=== PATIENT | male | born 1935 | race Caucasian/White ===

== ENCOUNTER 2025-02-10 21:15 | Inpatient (IN) | payer MEDICARE, BC ==
[~2025-02-10] VITALS: Ht 177.8 cm; Wt 86.2 kg
[~2025-02-10 21:15] MED LIST: ZOSYN IVPB 3.375 G in IV D5W 50ml IV ONE
[2025-02-10] MEDS ORDERED: PIPERACI/TAZO 3.375GM/D5W 50ML PB IV ONE (22:27)
[2025-02-10 22:31] LABS: CALCIUM, SERUM 8.8 mg/dL (8.5-10.1); CREATININE 1.0 mg/dL (0.6-1.3); SODIUM SERUM 138.0 mmol/L (136-145); UREA NITROGEN, BLOOD 17.0 mg/dL (7-18)
[2025-02-10 22:36] LABS: APPEARANCE,URINE SLIGHTLY CLOUDY (CLEAR); BLOOD, URINE 2+ Ery/uL (NEGATIVE); LEUKOCYTE ESTERASE ,URINE 2+ (NEGATIVE); NITRITE, URINE POSITIVE (NEGATIVE); UGLUCOSE NEGATIVE (NEGATIVE)
[2025-02-10 22:38] LABS: INR 1.09 (0.91-1.10); LACTIC ACID 1.2 mmol/L (0.4-2.0)
[2025-02-10] MEDS: PIPERACILLIN /TAZOBACTAM 3.375 G in IV D5W 50 ML IV ONE (22:39)
[2025-02-10] MEDS: IV NS 0.9% 1,000 ML BAG IV ONE (22:39)
[2025-02-10 22:44] LABS: ASPARTATE AMINOTRANSFERASE 27.0 U/L (15-37); TOTAL PROTEIN, SERUM 6.4 g/dL (6.4-8.2)
[2025-02-10 23:07] LABS: ADD URINE CULTURE YES
[2025-02-10 23:08] LABS: SQUAMOUS EPITHELIAL CELL,UR 0-2 /HPF (None Seen)
[2025-02-10 23:23] LABS: PLATELET COUNT (AUTO) 152 K/uL (150-450); RED BLOOD CELL COUNT(AUTO) 4.27 MIL/uL (4.5-6.0); RED CELL DISTRIBUTION WIDTH 15.1 % (11.5-15.0); WHITE BLOOD COUNT (AUTO) 15.9 K/uL (4.3-11.0)
[2025-02-10] MEDS ORDERED: MAG HYDROX/AL HYDROX/SIMETH 30 ML UDC PO PRN (23:30)
[2025-02-10] MEDS ORDERED: MAGNESIUM HYDROXIDE 30 ML UDC PO PRN (23:30)
[2025-02-10] MEDS ORDERED: DOSING PER PHARMACY-ZOSYN IV 1 EA EA XX PRN (23:30)
[2025-02-10] MEDS ORDERED: Z GUARD REMEDY 4 OZ OINT TP PRN (23:30)
[2025-02-10] MEDS ORDERED: ONDANSETRON HCL/PF 4 MG/2 ML VIAL IVP PRN (23:30)
[2025-02-11] MEDS: IV NS 0.9% 1,000 ML IV PRN (00:26)
[2025-02-11 04:00] VITALS: BP 136/79; TEMP 98.1; O2SAT 98
[2025-02-11 06:27] LABS: PLATELET COUNT (AUTO) 181 K/uL (150-450); RED BLOOD CELL COUNT(AUTO) 4.69 MIL/uL (4.5-6.0); RED CELL DISTRIBUTION WIDTH 15.0 % (11.5-15.0); WHITE BLOOD COUNT (AUTO) 16.3 K/uL (4.3-11.0)
[2025-02-11] MEDS: PANTOPRAZOLE 40 MG TABLET.DR PO SCH (06:40)
[2025-02-11 06:56] LABS: CALCIUM, SERUM 9.0 mg/dL (8.5-10.1); CREATININE 1.1 mg/dL (0.6-1.3); PHOSPHORUS 2.3 mg/dL (2.5-4.9); SODIUM SERUM 142.0 mmol/L (136-145); UREA NITROGEN, BLOOD 13.0 mg/dL (7-18)
[2025-02-11 07:10] LABS: LDL 49.0 mg/dL (0-99)
[2025-02-11] MEDS: PIPERACILLIN /TAZOBACTAM 3.375 G in IV D5W 100 ML IV SCH (10:11)
[2025-02-11] MEDS ORDERED: METH1TAB PO (10:34)
[2025-02-11] MEDS ORDERED: ALLO100T PO (10:34)
[2025-02-11] MEDS ORDERED: AMLO-213 PO (10:34)
[2025-02-11] MEDS ORDERED: TAMS-12 PO (10:34)
[2025-02-11] MEDS ORDERED: ATOR10TA PO (10:34)
[2025-02-11 12:00] VITALS: BP 159/88; TEMP 97.8; O2SAT 98
[2025-02-11] MEDS: K PHOS NEUTRAL 250 MG TABLET PO ONE (16:21)
[2025-02-11 20:00] VITALS: BP 157/91; TEMP 98.2; O2SAT 95
[2025-02-12 04:00] VITALS: BP 158/85; TEMP 98.2; O2SAT 96
[2025-02-12 16:00] VITALS: BP 160/74; TEMP 97.8; O2SAT 96
[2025-02-13] VITALS: BP 162/75; TEMP 97.9; O2SAT 96
[2025-02-13 08:00] VITALS: BP 155/78; TEMP 98.1; O2SAT 95
[2025-02-13 10:31] LABS: PLATELET COUNT (AUTO) 168 K/uL (150-450); RED BLOOD CELL COUNT(AUTO) 4.71 MIL/uL (4.5-6.0); RED CELL DISTRIBUTION WIDTH 14.6 % (11.5-15.0); WHITE BLOOD COUNT (AUTO) 9.1 K/uL (4.3-11.0)
[2025-02-13] MEDS: AMLODIPINE BESYLATE 10 MG TABLET PO SCH (10:32)
[2025-02-13 10:45] LABS: CALCIUM, SERUM 9.0 mg/dL (8.5-10.1); CREATININE 1.1 mg/dL (0.6-1.3); SODIUM SERUM 140.0 mmol/L (136-145); UREA NITROGEN, BLOOD 12.0 mg/dL (7-18)
[2025-02-13 16:00] VITALS: BP 152/72; TEMP 97.8; O2SAT 96
[2025-02-13] MEDS: ALLOPURINOL 100 MG TABLET PO SCH (17:05)
[2025-02-13 20:00] VITALS: BP 158/88; TEMP 97.9; O2SAT 97
[2025-02-13] MEDS: LEVOFLOXACIN (250MG) 250 MG TABLET PO ONE (22:05)
[2025-02-13] MEDS: ACETAMINOPHEN 325 MG TABLET PO PRN (22:06)
[2025-02-14] VITALS: BP 159/85; TEMP 97.8; O2SAT 97
[2025-02-14 07:35] LABS: PLATELET COUNT (AUTO) 178 K/uL (150-450); RED BLOOD CELL COUNT(AUTO) 4.77 MIL/uL (4.5-6.0); RED CELL DISTRIBUTION WIDTH 14.8 % (11.5-15.0); WHITE BLOOD COUNT (AUTO) 7.4 K/uL (4.3-11.0)
[2025-02-14 07:46] LABS: CALCIUM, SERUM 9.5 mg/dL (8.5-10.1); CREATININE 1.0 mg/dL (0.6-1.3); PHOSPHORUS 2.8 mg/dL (2.5-4.9); SODIUM SERUM 142.0 mmol/L (136-145); UREA NITROGEN, BLOOD 13.0 mg/dL (7-18)
[2025-02-14 08:00] VITALS: BP 157/73; TEMP 97.3; O2SAT 97
[2025-02-14] MEDS: TAMSULOSIN 0.4 MG CAP.SR.24H PO SCH (08:35)
[2025-02-14] MEDS: ATORVASTATIN 10 MG TABLET PO SCH (08:47)
[2025-02-14 16:00] VITALS: BP 135/61; TEMP 98.7; O2SAT 97
[2025-02-14 20:00] VITALS: BP 147/86; TEMP 97.9; O2SAT 95
[2025-02-14] MEDS: LEVOFLOXACIN (250MG) 250 MG TABLET PO SCH (20:53)
[2025-02-15 04:00] VITALS: BP 125/76; TEMP 98.1; O2SAT 95
[2025-02-15 08:00] VITALS: BP_SYST 170; BP_SYST 173; BP_DIAS 68; BP_DIAS 69; TEMP 97.8; O2SAT 97
[2025-02-15 11:19] VITALS: BP 150/66; TEMP 98.1; O2SAT 95
[2025-02-15 16:00] VITALS: BP 169/69; TEMP 98.4; O2SAT 95
[2025-02-15 20:00] VITALS: BP 140/74; TEMP 97.5; O2SAT 96
[2025-02-16 04:00] VITALS: BP 148/89; TEMP 98.4; O2SAT 95
[2025-02-16 08:00] VITALS: BP 165/79; TEMP 98.1; O2SAT 98
[2025-02-16] MEDS: AMLODIPINE BESYLATE 10 MG TABLET PO SCH (08:37)
[2025-02-16] MEDS ORDERED: AMLODIPINE BESYLATE 5 MG TABLET PO SCH (09:00)
[2025-02-16] MEDS ORDERED: LEVO250T59 PO (10:15)
[2025-02-16] MEDS ORDERED: AMLO-213 PO (10:15)
[2025-02-16 16:00] VITALS: BP 151/67; TEMP 97.5; O2SAT 95
[2025-02-16 20:00] VITALS: BP 173/81; TEMP 97.7; O2SAT 97
[2025-02-16 20:22] VITALS: BP 151/81
[2025-02-17 04:00] VITALS: BP 149/83; TEMP 97.3
[2025-02-17 08:00] VITALS: BP 142/75; TEMP 97.9; O2SAT 94
[2025-02-17] MEDS: ALBUTEROL FS 2.5 MG/3 ML VIAL.NEB NEB SCH (10:57)
[2025-02-17] MEDS: IPRATROPIUM NEB FS 0.5 MG/2.5 ML AMPUL.NEB NEB SCH (10:57)
[2025-02-17] MEDS: FUROSEMIDE 20 MG/2 ML VIAL IV SCH (11:58)
[2025-02-17 11:59] VITALS: BP 139/73
[2025-02-17 13:19] VITALS: O2SAT 95
[2025-02-17 13:34] VITALS: O2SAT 100
[2025-02-17] MEDS ORDERED: AMLO-213 PO (14:03)
[2025-02-17] MEDS ORDERED: IPRA0.2S9 NEB (14:03)
[2025-02-17] MEDS ORDERED: LEVO250T59 PO (14:03)
[2025-02-17] MEDS ORDERED: PANT40TA49 PO (14:03)
[2025-02-17] MEDS ORDERED: ALBUT2 NEB (14:03)
== END 2025-02-17 15:30 | DRG 698 ==
LOC: ER 21:17 → TELE1 23:40 → MEDSG1 02-11 02:32
PROVIDERS: ADMIT Nurse Practitioner Acute Care; ATTEND Nurse Practitioner Family
DX: T83.511A Infection and inflammatory reaction due to indwelling urethral catheter, initial encounter (principal); A41.9 Sepsis, unspecified organism; R65.20 Severe sepsis without septic shock; N39.0 Urinary tract infection, site not specified; B96.89 Other specified bacterial agents as the cause of diseases classified elsewhere; B96.5 Pseudomonas (aeruginosa) (mallei) (pseudomallei) as the cause of diseases classified elsewhere; B96.4 Proteus (mirabilis) (morganii) as the cause of diseases classified elsewhere; F03.A0 Unspecified dementia, mild, without behavioral disturbance, psychotic disturbance, mood disturbance, and anxiety; I10 Essential (primary) hypertension; E88.09 Other disorders of plasma-protein metabolism, not elsewhere classified; E78.5 Hyperlipidemia, unspecified; N40.0 Benign prostatic hyperplasia without lower urinary tract symptoms; Z20.822 Contact with and (suspected) exposure to COVID-19; Z87.440 Personal history of urinary (tract) infections; Z87.81 Personal history of (healed) traumatic fracture; Z98.890 Other specified postprocedural states; N40.1 Benign prostatic hyperplasia with lower urinary tract symptoms; R33.8 Other retention of urine; R73.9 Hyperglycemia, unspecified
CPT/HCPCS: 36415; 71045-TC; 76700-TC; 80048-TC; 80061-TC; 80076-TC; 81001; 83605-TC; 83735-TC; 84100-TC; 84443-TC; 85025-TC; 85730-TC; 87040-TC; 87081-TC; 87086-TC; 87186-TC; 97110-TC; 97116-TC; 97530-TC; 97535-TC; A4223; G0378; J1938; J2543; J7030; J7060